=== PATIENT | female | born 1990 | race African-American/Black ===

== ENCOUNTER 2017-03-21 23:01 | Emergency (ER) | payer OTHER ==
[~2017-03-21] VITALS: Ht 167.6 cm; Wt 103.9 kg
[2017-03-22 00:03] VITALS: BP 156/69
== END 2017-03-22 02:15 | disposition home or self-care (01) ==
LOC: ED 03-22 02:00
DX: S50.352A Superficial foreign body of left elbow, initial encounter (principal); F17.210 Nicotine dependence, cigarettes, uncomplicated; F11.10 Opioid abuse, uncomplicated; X58.XXXA Exposure to other specified factors, initial encounter; Y93.89 Activity, other specified; Y92.89 Other specified places as the place of occurrence of the external cause; Y99.8 Other external cause status
CPT/HCPCS: 99284

== ENCOUNTER 2017-07-08 22:06 | Emergency (ER) | payer SELFPAY ==
[~2017-07-08] VITALS: Ht 167.6 cm; Wt 95.8 kg
[2017-07-08 22:11] VITALS: BP 154/80
[2017-07-08 22:56] LABS: BASOPHILS # (AUTO) 0.11 x10^3/uL (0-0.1); BASOPHILS % (AUTO) 1 % (0-1); EOSINOPHILS # (AUTO) 0.16 x10^3/uL (0-0.4); EOSINOPHILS % (AUTO) 2 % (1-7); LYMPHOCYTES % (AUTO) 31 % (22-44); MD NO; MEAN CORPUSCULAR HEMOGLOBIN 27.9 pg (27.0-34.8); MEAN CORPUSCULAR HGB CONC 32.5 g/dL (32.4-35.8); MEAN CORPUSCULAR VOLUME 85.9 fL (80-100); MEAN PLATELET VOLUME 7.8 fL (7.4-10.4); MONOCYTES # (AUTO) 0.69 x10^3/uL (0.2-0.8); MONOCYTES % (AUTO) 8 % (2-9); NEUTROPHILS % (AUTO) 59 % (42-75); PLATELET COUNT 475 x10^3/uL (130-400); RED BLOOD COUNT 3.85 x10^6/uL (3.82-5.3); RED CELL DISTRIBUTION WIDTH 14.8 % (9.6-15.2)
[2017-07-08] MEDS ORDERED: ACETAMINOPHEN 500 MG TABLET PO ONE (23:00)
[2017-07-08 23:08] LABS: ALANINE AMINOTRANSFERASE 18 U/L (12-78); ALBUMIN 3.4 g/dL (3.4-5.0); ANION GAP 10 mmol/L (5-15); CALCIUM 8.4 mg/dL (8.5-10.1); CHLORIDE 106 mmol/L (98-107); CREATININE 0.82 mg/dL (0.55-1.02)
[2017-07-08 23:10] LABS: ALKALINE PHOSPHATASE 62 U/L (45-117); BILIRUBIN,TOTAL 0.6 mg/dL (0.2-1.0); TOTAL PROTEIN 7.5 g/dL (6.4-8.2)
[2017-07-08] MEDS ORDERED: ACETAMINOPHEN 500 MG TABLET ONE (23:23)
== END 2017-07-09 01:31 | disposition home or self-care (01) ==
LOC: ED 23:59
DX: S93.601A Unspecified sprain of right foot, initial encounter (principal); M79.89 Other specified soft tissue disorders; X58.XXXA Exposure to other specified factors, initial encounter; Y93.89 Activity, other specified; Y92.89 Other specified places as the place of occurrence of the external cause; Y99.8 Other external cause status
CPT/HCPCS: 36415; 80053; 85025; 99285

== ENCOUNTER 2017-07-17 06:26 | Emergency (ER) | payer SELFPAY ==
[~2017-07-17] VITALS: Ht 167.6 cm; Wt 97.4 kg
[2017-07-17 06:27] VITALS: BP 141/84
== END 2017-07-17 10:53 | disposition home or self-care (01) ==
LOC: ED 08:35
DX: S90.32XA Contusion of left foot, initial encounter (principal); S90.31XA Contusion of right foot, initial encounter; L03.114 Cellulitis of left upper limb; Y04.2XXA Assault by strike against or bumped into by another person, initial encounter; Y93.89 Activity, other specified; Y92.89 Other specified places as the place of occurrence of the external cause; Y99.8 Other external cause status
CPT/HCPCS: 99284

== ENCOUNTER 2017-09-12 13:30 | Emergency (ER) | payer SELFPAY ==
[~2017-09-12] VITALS: Ht 167.6 cm; Wt 80.0 kg
[2017-09-12 13:38] VITALS: BP 122/77
== END 2017-09-12 14:22 | disposition home or self-care (01) ==
LOC: ED 13:55
DX: O26.891 Other specified pregnancy related conditions, first trimester (principal); Z3A.00 Weeks of gestation of pregnancy not specified
CPT/HCPCS: 99283

== ENCOUNTER 2019-11-19 09:55 | Emergency (ER) | payer MEDICAID, OTHER ==
[~2019-11-19] VITALS: Ht 167.6 cm; Wt 90.0 kg
[2019-11-19] MEDS ORDERED: SODIUM CHLORIDE FLUSH 10ML SYR IVF ONE (10:00)
--- NOTE | 2019-11-19 10:19 | NUR ---
THIS IS A 29 YO F W/ C/O N/V, RLQ/RUQ AND RT SIDED FLANK PAIN SINCE 0 THIS MORNING. PER LAW ENF[employer]CEMENT THEY WERE UNABLE TO DRAW LABS AT [facility] AND BROUGHT PT HERE TO OBTAIN LABS W/ US. PT RESTING ON Apertio W/ CALL LIGHT IN REACH. RESP EVEN AND UNLABORED, VSS, NADN.
[2019-11-19 10:30] LABS: MICROSCOPIC INDICATED
[2019-11-19 10:30] LABS: MEAN CORPUSCULAR HEMOGLOBIN 26.2 pg (27.0-34.8); MEAN CORPUSCULAR HGB CONC 31.9 g/dL (32.4-35.8); MEAN CORPUSCULAR VOLUME 82.2 fL (80-100); MEAN PLATELET VOLUME 8.4 fL (7.4-10.4); PLATELET COUNT 472 x10^3/uL (130-400); RED BLOOD COUNT 4.73 x10^6/uL (3.82-5.3); RED CELL DISTRIBUTION WIDTH 16.6 % (9.6-15.2)
[2019-11-19 10:36] LABS: ALANINE AMINOTRANSFERASE 24 U/L (12-78); ALBUMIN 3.9 g/dL (3.4-5.0); ANION GAP 9 mmol/L (5-15); CHLORIDE 104 mmol/L (98-107)
[2019-11-19 10:38] LABS: BASOPHILS # (AUTO) 0.16 x10^3/uL (0-0.1); BASOPHILS % (AUTO) 1 % (0-1); EOSINOPHILS # (AUTO) 0.03 x10^3/uL (0-0.4); EOSINOPHILS % (AUTO) 0 % (1-7); LYMPHOCYTES # (AUTO) 2.07 x10^3/uL (1-3.4); LYMPHOCYTES % (AUTO) 17 % (22-44); MD SCAN; MONOCYTES # (AUTO) 0.45 x10^3/uL (0.2-0.8); MONOCYTES % (AUTO) 4 % (2-9); NEUTROPHILS # (AUTO) 9.48 x10^3/uL (1.8-6.8); NEUTROPHILS % (AUTO) 78 % (42-75)
[2019-11-19 10:41] LABS: ALKALINE PHOSPHATASE 70 U/L (45-117); BILIRUBIN,TOTAL 0.7 mg/dL (0.2-1.0); CREATININE 0.77 mg/dL (0.55-1.02); TOTAL PROTEIN 8.2 g/dL (6.4-8.2)
[2019-11-19] MEDS ORDERED: ONDANSETRON 2MG/ML, 2ML IVPush ONE (11:00)
[2019-11-19] MEDS ORDERED: MORPHINE SULFATE 4 MG/ML, 1ML IVPush PRN (11:00)
[2019-11-19] MEDS ORDERED: ONDANSETRON 2MG/ML, 2ML ONE (11:01)
[2019-11-19] MEDS ORDERED: MORPHINE SULFATE 4 MG/ML, 1ML ONE (11:01)
--- NOTE | 2019-11-19 11:18 | NUR ---
PT TO CT.
[2019-11-19 11:35] VITALS: BP 141/75
--- NOTE | 2019-11-19 12:01 | NUR ---
PT REPORTS RELIEF OF PAIN W/ MEDS.
[2019-11-19] MEDS ORDERED: PROMETHAZINE 25 MG/ML, 1ML IM ONE (12:30)
[2019-11-19] MEDS ORDERED: PROMETHAZINE 25 MG/ML, 1ML ONE (12:30)
[2019-11-19] MEDS ORDERED: CEFTRIAXONE PMX 1GM/50ML 50 ML ONE (12:40)
[2019-11-19] MEDS ORDERED: CEFTRIAXONE PMX 1GM/50ML 50 ML IVPB ONE (13:00)
--- NOTE | 2019-11-19 13:31 | NUR ---
Patient given discharge instructions and they have confirmed that they understand the instructions. Patient ambulatory with steady gait accompanied by law enforcement.
== END 2019-11-19 13:32 ==
LOC: ED 10:14
DX: N30.01 Acute cystitis with hematuria (principal); R11.2 Nausea with vomiting, unspecified; R10.31 Right lower quadrant pain
CPT/HCPCS: 36415; 74176; 80053; 81001; 83690; 84703; 85025; 87077; 87086; 96365; 96372; 96375; 99285; J0696; J2270; J2405; J2550; 87186